=== PATIENT | female | born 1970 | race African-American/Black ===

== ENCOUNTER 2017-02-02 23:12 | Emergency (ER) | payer OTHER ==
[~2017-02-02] VITALS: Ht 167.6 cm; Wt 119.3 kg
== END 2017-02-03 00:28 | disposition home or self-care (01) ==
LOC: CED 23:12
DX: I83.892 Varicose veins of left lower extremity with other complications (principal); E11.9 Type 2 diabetes mellitus without complications
CPT/HCPCS: 99283